=== PATIENT | female | born 1985 | race Caucasian/White ===

== ENCOUNTER 2018-05-30 02:25 | Inpatient (IN) ==
[2018-05-30] MEDS ORDERED: ceFAZolin 2 GM IV; once IV.SIG SCH (02:45)
[2018-05-30] MEDS ORDERED: Citric Acid/Sodium Citrate Liq 15 ML UDC PO SCH (02:45)
[2018-05-30] MEDS ORDERED: fentaNYL Citrate Inj 250 MCG/5 ML Ampul ONE (02:54)
[2018-05-30 02:57] LABS: Bilirubin,Urine Negative (Negative); Clarity,Urine Hazy (Clear); Color,Urine Yellow (Yellw/Straw); Glucose,Urine (UA) Negative (Negative); Leukocyte Esterase,Urine Negative (Negative); Mucus,Urine Few /lpf (Occasional); Nitrite,Urine Negative (Negative); Specific Gravity,Urine 1.013 (1.002-1.035); Squamous Epithelial Cell,Urine 3 /hpf (0-5)
[2018-05-30 03:30] LABS: Baso % (Auto) 0.1 % (0.0-2.0); Eos # (Auto) 0.1 th/mm3 (0.0-0.4); Eos % (Auto) 0.8 % (0.0-4.0); Hemoglobin 9.7 gm/dL (11.6-15.3); Lymph % (Auto) 26.1 % (9.0-44.0); Mean Corpuscular HGB Conc 33.5 % (32.0-36.0); Mean Corpuscular Hemoglobin 27.6 pg (27.0-34.0); Mean Corpuscular Volume 82.1 fL (80.0-100.0); Mean Platelet Volume 7.4 fL (7.0-11.0); Mono # (Auto) 1.1 th/mm3 (0.0-0.9); Mono % (Auto) 9.2 % (0.0-8.0); Neut # (Auto) 7.4 th/mm3 (1.8-7.7); Neut % (Auto) 63.8 % (16.0-70.0); Platelet Count 230 th/mm3 (150-450); Red Blood Count 3.53 mil/mm3 (4.00-5.30); Red Cell Distribution Width 15.5 % (11.6-17.2); White Blood Count 11.5 th/mm3 (4.0-11.0)
[2018-05-30 03:36] LABS: Amphetamine Urine With Conf Neg (Neg); Benzodiazepine Urine With Conf Neg (Neg)
[2018-05-30] MEDS ORDERED: Acetaminophen 325 MG Tablet PO PRN (03:54)
[2018-05-30] MEDS ORDERED: Simethicone 80 MG Chew Tablet PO PRN (03:54)
[2018-05-30] MEDS ORDERED: Oxytocin 30 Units/500ml Premix 30 UNITS/500 ML BAG IV.SIG ONE ×2 (03:54→05:51)
[2018-05-30] MEDS ORDERED: Zolpidem Tartrate 5 MG Tablet PO PRN ×2 (03:54→05:51)
[2018-05-30] MEDS ORDERED: Naloxone Inj 0.4 MG/ML Vial IV.PUSH PRN (03:54)
[2018-05-30] MEDS ORDERED: Morphine Inj 30 MG/30 ML PCA.VIAL PCA ONE (04:04)
--- NOTE | 2018-05-30 04:09 | P.HPOB ---
History of Present Illness Service: Precipitous labor at 31 weeks, previous 3, breech presentation Primary Care Physician: Cory Cortez MD History of Present Illness: Patient is 32-year-old white female 31 weeks previous 3 for [address] patient [address] Hernandez's who presents with precipitous labor essentially fully dilated when she arrived in ED, bulging bag was PALPABLE ultrasound confirms incomplete breech presentation Weeks Gestation:: 31 Para: 3 : 4 - Inpatient Certification If this patient has been admitted as an Inpatient: I certify that the inpatient services were ordered in accordance with Medicare regulations governing the order. This includes certification that hospital inpatient services are reasonable and necessary and in the case of services not specified as inpatient-only under 42 CFR 419.22(n), that they are appropriately provided as inpatient services in accordance to with the 2-midnight benchmark under 43 CFR 412.3(e) Estimated Total Length of Stay (Days): 4 Plans for Post Hospital Care: Home Review of Systems Constitutional: Denies anorexia, Denies body ache(s), Denies chills, Denies daytime sleepiness, Denies excessive sweating, Denies fatigue, Denies fever(s), Denies headache(s), Denies increased appetite, Denies lack of energy, Denies malaise, Denies night sweats, Denies weakness, Denies weight gain, Denies weight loss, Denies other Ears, Nose, Mouth, and Throat: Denies abnormal hearing, Denies bleeding gums, Denies bad breath, Denies change in voice, Denies dental pain, Denies difficulty swallowing, Denies dizziness, Denies dry mouth, Denies ear discharge , Denies ear pain, Denies facial pain, Denies headache(s), Denies hearing loss, Denies hoarseness, Denies lip swelling, Denies nosebleed, Denies mouth lesions, Denies mouth pain, Denies nasal congestion, Denies nasal discharge, Denies nasal obstruction, Denies nasal trauma, Denies neck lump, Denies neck pain, Denies nose pain, Denies pain with swallowing, Denies poor balance, Denies post nasal drip, Denies ringing in the ears, Denies sinus pain, Denies sinus pressure , Denies sore throat, Denies throat swelling, Denies tongue swelling, Denies other Cardiovascular: Denies chest pain, Denies chest pain at rest, Denies chest pain with activity, Denies excessive sweating, Denies fainting, Denies fast heart rate, Denies foot swelling, Denies generalized swelling, Denies irregular heart rhythm, Denies leg pain with activity, Denies leg sores, Denies leg swelling, Denies lightheadedness, Denies radiating jaw, neck or arm pain, Denies rapid, pounding, or irregular heartbeat, Denies shortness of breath, Denies shortness of breath with activity, Denies shortness of breath when lying down, Denies shortness of breath causing sudden awakening, Denies slow heart rate, Denies other Respiratory: Denies change in phlegm color, Denies chest congestion, Denies cough, Denies coughing up blood, Denies excessive phlegm production, Denies pain on inspiration, Denies pain with cough, Denies shortness of breath, Denies shortness of breath with activity, Denies snoring, Denies stridor, Denies wheezing, Denies other Gastrointestinal: Reports abdominal pain Genitourinary: Denies abnormal periods, Denies abnormal vaginal bleeding, Denies absent period, Denies bleeding between periods, Denies blood in urine, Denies difficulty starting urination, Denies difficulty urinating, Denies dribbling after urination, Denies frequent nighttime urination, Denies genital itching, Denies genital lesions, Denies heavy periods, Denies hot flashes, Denies light periods, Denies nipple discharge, Denies painful intercourse, Denies painful periods, Denies painful urination, Denies pelvic pain, Denies prolapse symptoms, Denies sexual problems, Denies side pain, Denies urinary incontinence, Denies urinary urgency, Denies vaginal discharge, Denies vaginal dryness, Denies vaginal odor, Denies vaginal itching, Denies other Musculoskeletal: Denies abnormal walking, Denies back pain, Denies body aches, Denies decreased muscle mass, Denies deformity, Denies joint pain, Denies joint swelling, Denies limited joint movement, Denies loss of height, Denies muscle cramps, Denies muscle weakness, Denies neck pain, Denies numbness, Denies radiating pain into limb, Denies stiffness, Denies tingling, Denies other PMFSH - History History Provided By: Patient - Medical History Medical History: Medical History (Last Updated 05/30/18 @ 04:04 by Cory Cortez MD) delivery delivered - Travel History History of Recent Travel: No Recent Travel in the [place] Within the Last 8 Weeks: No Recent Travel Out of the Country Within the Last 8 Weeks: No Medications and Allergies Active Medications: Active Medications Acetaminophen (Tylenol) 650 mg PO Q6H PRN PRN Reason: PAIN SCALE 1 TO 2 Citric Acid/Sodium Citrate (Sod Citrate/Citric Acid Liq) 30 ml PO DECK HAND [facility] Stop: 06/01/18 02:44 Diphtheria/Pertussis/Tetanus Vacc (Boostrix Vaccine Inj) 0.5 ml IM .ONCE ONE Stop: 05/31/18 16:01 Cefazolin Sodium/Dextrose (Ancef 2 Gm Premix Inj) 2 gm in 50 mls @ 100 mls/hr IV.SIG DECK HAND [facility] Stop: 06/01/18 02:44 Lactated Ringer's (Lr 1000 Ml Inj) 1,000 mls @ 150 mls/hr IV.CONT .Q6H40M [facility] Cefazolin Sodium 2,000 mg/ (Sodium Chloride) 100 mls @ 200 mls/hr IV.SIG Q8H [facility] Stop: 05/30/18 12:29 Lactated Ringer's (Lr 1000 Ml Inj) 1,000 mls @ 100 mls/hr IV.CONT .Q10H [facility] Stop: 05/31/18 04:53 Morphine Sulfate (Morphine Inj) 30 mg in 30 mls @ 0 mls/hr YOUNG ADULT LIBRARIAN UNSCH PRN PRN Reason: per YOUNG ADULT LIBRARIAN parameters Oxytocin (Pitocin 30 Units/Ns 500 Ml Premix) 30 units in 500 mls @ 100 mls/hr IV.SIG ONCE ONE Stop: 05/30/18 08:53 Oxytocin (Pitocin 30 Units/Ns 500 Ml Premix) 30 units in 500 mls @ 100 mls/hr IV.SIG PRN PRN PRN Reason: Heavy bleeding Stop: 05/31/18 08:53 Ketorolac Tromethamine (Toradol Inj) 30 mg IM Q6H PRN PRN Reason: SEE LABEL COMMENTS Measles/Mumps/Rubella Vaccine Live (M-M-R Ii Vaccine Inj) 0.5 ml SQ .ONCE ONE Stop: 05/31/18 16:01 Naloxone HCl (Narcan Inj) 0.4 mg IV.PUSH PRN PRN PRN Reason: Resp rate < 10 Ondansetron HCl (Zofran Inj) 4 mg IV.PUSH Q6H PRN PRN Reason: NAUSEA OR VOMITING Oxycodone/Acetaminophen (Percocet 5/325 Mg) 1 tab PO Q4H PRN PRN Reason: PAIN SCALE 3 TO 5 Oxycodone/Acetaminophen (Percocet 5/325 Mg) 2 tab PO Q4H PRN PRN Reason: PAIN SCALE 6 TO 10 Senna/Docusate Sodium (Asia-Colace) 2 tab PO Q12H PRN PRN Reason: CONSTIPATION Simethicone (Mylicon Chew) 80 mg PO QID PRN PRN Reason: FLATULENCE Sodium Chloride (Ns Flush) 2 ml IV.FLUSH BID ARACELY Sodium Chloride (Ns Flush) 2 ml IV.FLUSH PRN PRN PRN Reason: FLUSH AFTER USING IV ACCESS Zolpidem Tartrate (Ambien) 5 mg PO HS PRN PRN Reason: INSOMNIA Allergies Allergy/AdvReac Type Severity Reaction Status Date / Time No Known Allergies Allergy Unverified 05/30/18 02:25 Home Medications Medication Instructions Recorded Confirmed Type No Known Home Medications 05/30/18 05/30/18 History Exam - Constitutional severe distress - Routine HEENT Exam Head: Present: normocephalic Eye: Present: PERRL - Routine Neck Exam Present: supple - Routine Cardiovascular Exam Present: RRR - Routine Abdominal Exam Present: tenderness, surgical scars - Routine Exam Comments: Pelvic exam reveals cervix that is 9-10 cm with bulging amniotic membranes no presenting part palpable but ultrasound confirmed incomplete breech Results - Labs CBC & Chem 7: 05/30/18 03:10 Labs: Laboratory Results - last 24 hr 05/30/18 05/30/18 05/30/18 02:20 02:20 03:10 WBC 11.5 H RBC 3.53 L Hgb 9.7 L Hct 29.0 L MCV 82.1 MCH 27.6 MCHC 33.5 RDW 15.5 Plt Count 230 MPV 7.4 Neut % (Auto) 63.8 Lymph % (Auto) 26.1 [place] % (Auto) 9.2 H Eos % (Auto) 0.8 Baso % (Auto) 0.1 Neut # (Auto) 7.4 Lymph # (Auto) 3.0 [place] # (Auto) 1.1 H Eos # (Auto) 0.1 Baso # (Auto) 0.0 WBC Differential . Differential Comment Auto diff final Urine Color Yellow Urine Clarity Hazy H Urine pH 7.0 Ur Specific [place] 1.013 Urine Protein Negative Urine Glucose (UA) Negative Urine Ketones Negative Urine Occult Blood Large H Urine Nitrate Negative Urine Bilirubin Negative Urine Urobilinogen Less than 2 Ur Leukocyte Esterase Negative Urine RBC 123 H Urine WBC 3 Ur Squamous Epith Cells 3 Urine Mucus Few H Micro UA Comment Culture not ind Urine Culture Comments Culture not ind Urine Opiates Screen Pos H Ur Barbiturates Screen Neg Ur Amphetamine Screen Neg U Benzodiazepines Scrn Neg Urine Cocaine Screen Pos H U Cannabinoids Screen Neg Blood Type Blood Type Recheck 05/30/18 03:10 WBC RBC Hgb Hct MCV MCH MCHC RDW Plt Count MPV Neut % (Auto) Lymph % (Auto) [place] % (Auto) Eos % (Auto) Baso % (Auto) Neut # (Auto) Lymph # (Auto) [place] # (Auto) Eos # (Auto) Baso # (Auto) WBC Differential Differential Comment Urine Color Urine Clarity Urine pH Ur Specific [place] Urine Protein Urine Glucose (UA) Urine Ketones Urine Occult Blood Urine Nitrate Urine Bilirubin Urine Urobilinogen Ur Leukocyte Esterase Urine RBC Urine WBC Ur Squamous Epith Cells Urine Mucus Micro UA Comment Urine Culture Comments Urine Opiates Screen Ur Barbiturates Screen Ur Amphetamine Screen U Benzodiazepines Scrn Urine Cocaine Screen U Cannabinoids Screen Blood Type O Positive Blood Type Recheck Required Caprini VTE Risk Assessment Caprini VTE Risk Assessment: No/Low Risk (score <= 1) Caprini Risk Assessment Model: Point Value = 1 Point Value = 2 Point Value = 3 Point Value = 5 Age 41-60 Minor surgery BMI > 25 kg/m2 Swollen legs Varicose veins or History of unexplained or recurrent spontaneous Oral contraceptives or hormone replacement Sepsis (< 1 month) Serious lung disease, including pneumonia (< 1 month) Abnormal pulmonary function Acute myocardial infarction Congestive heart failure (< 1 month) History of inflammatory bowel disease Medical patient at bed rest Age 61-74 Arthroscopic surgery Major open surgery (> 45 min) Laparoscopic surgery (> 45 min) Malignancy Confined to bed (> 72 hours) Immobilizing plaster cast Central venous access Age >= 75 History of VTE Family history of VTE Factor V Leiden Prothrombin [id number] Lupus anticoagulant Anticardiolipin antibodies Elevated serum homocysteine Heparin-induced thrombocytopenia Other congenital or acquired thrombophilia Stroke (< 1 month) Elective arthroplasty Hip, pelvis, or leg fracture Acute spinal cord injury (< 1 month) Prophylaxis Regimen: Total Risk Factor Score Risk Level Prophylaxis Regimen 0-1 Low Early ambulation 2 Moderate Order ONE of the following: *Sequential Compression Device (SCD) *Heparin 5000 units SQ BID 3-4 Higher Order ONE of the following medications: *Heparin 5000 units SQ TID *Enoxaparin/Lovenox 40 mg SQ daily (WT < 150 kg, CrCl > 30 mL/min) *Enoxaparin/Lovenox 30 mg SQ daily (WT < 150 kg, CrCl > 10-29 mL/min) *Enoxaparin/Lovenox 30 mg SQ BID (WT < 150 kg, CrCl > 30 mL/min) AND/OR *Sequential Compression Device (SCD) 5 or more Highest Order ONE of the following medications: *Heparin 5000 units SQ TID (Preferred with Epidurals) *Enoxaparin/Lovenox 40 mg SQ daily (WT < 150 kg, CrCl > 30 mL/min) *Enoxaparin/Lovenox 30 mg SQ daily (WT < 150 kg, CrCl > 10-29 mL/min) *Enoxaparin/Lovenox 30 mg SQ BID (WT < 150 kg, CrCl > 30 mL/min) AND *Sequential Compression Device (SCD) Assessment and Plan - Diagnosis (1) Precipitate labor, delivered, current hospitalization Code(s): O62.3 - Precipitate labor Status: Acute (2) Breech delivery Code(s): O32.1XX0 - Maternal care for breech presentation, not applicable or unspecified Status: Acute - Plan Plan is emergent repeat section
[2018-05-30] MEDS ORDERED: Oxytocin 30 Units/500ml Premix 30 UNITS/500 ML BAG ONE (04:11)
[2018-05-30] MEDS: Morphine Inj 30 MG/30 ML PCA.VIAL PCA PRN ×3 (04:17→15:16)
[2018-05-30] MEDS ORDERED: ceFAZolin Inj 2,000 MG in Sodium Chlor 0.9% Inj 80 ML IV.SIG SCH (05:00)
--- NOTE | 2018-05-30 05:41 | MP ---
cc: Cory Cortez MD DATE OF OPERATION: 05/30/2018 PREOPERATIVE DIAGNOSIS: Precipitous labor, previous section x 3, breech presentation with this fetus. POSTOPERATIVE DIAGNOSIS: Precipitous labor, previous section x 3, breech presentation with this fetus, placental abruption and positive drug screen. PROCEDURE PERFORMED: Repeat section, classical. SURGEON: Cory Cortez MD ANESTHESIA: General. PREOPERATIVE NOTE: The patient is a 32-year-old white female, G4, P3, previous x 3, now at 31 weeks, who sees Dr. Hernandez for care, who presents to OB ED and precipitous labor, 9-10 cm dilated with a bulging amniotic sac and baby in an incomplete breech presentation, confirmed by ultrasound. The patient needed emergent section for delivery and was taken to the operating room for the same. DESCRIPTION OF PROCEDURE: The patient was taken to the operating room, and after IV access was obtained, which took quite a while, she was prepped and draped and rapid sequence induction of general anesthetic performed. After intubation, a vertical skin incision was made from symphysis to the umbilicus and carried to fascia sharply. The fascia was incised in a superior and inferiorly, the peritoneal cavity entered sharply and bandage scissors used to expand that incision. The bladder blade placed on the lower edge of the incision, the visceral peritoneum reflected off the lower uterine segment and a vertical incision was made in the lower uterine segment to near the fundus. At that time, a moderate amount of dark blood extruded through the incision and blood clot, consistent with an abruption and this was prior to rupture of the membranes, the membranes were ruptured and clear fluid noted. The baby was in an incomplete breech presentation and was extracted in the usual fashion for a breech. The incision had to be extended near the fundus to allow atraumatic delivery of the baby's head. Baby was delivered at 2:54 a.m. 8 and 8, weight 1620 grams. This was a male fetus. Delayed cord clamping done and the baby handed to awaiting staff. Cord pH obtained and pending at this time. Cord blood obtained. Placenta manually extracted and was examined and noted to have a marginal abruption, approximately 10-15% and then the placenta was sent to pathology. The uterus was exteriorized, cleaned of all remnants of blood clot and then the vertical incision was closed in a running, nonlocking 0 chromic suture, followed by an imbricating suture of the same. Hemostasis was achieved. The tubes and ovaries were within normal limits. Blood suctioned from the cul-de-sac and gutters and then the uterus replaced in the peritoneal cavity. The parietal peritoneum closed with a running layer of 2-0 Vicryl. Fascia was then closed with a running layer of 0 Vicryl. Subcutaneous tissue reapproximated with 2 layers of subcutaneous closure to reapproximate those edges so there would be no pressure on the skin incision itself and the then skin closed with a 3-0 Monocryl running subcuticular stitch. Steri-Strips and pressure dressing applied. The estimated blood loss was 750 mL. Sponge and needle count were correct x 2. The patient went to recovery in stable condition. MD JENI Barnes/MALACHI , 04:19 AM , 05:39 AM
[2018-05-30 05:45] LABS: Cord Arterial Blood HCO3 23.3
[2018-05-30] MEDS ORDERED: [UNRECOGNIZED DRUG - REMARK] OTHER SCH (08:45)
[2018-05-30] MEDS ORDERED: Oxytocin 30 Units/500ml Premix 30 UNITS/500 ML BAG IV.SIG PRN ×2 (08:54→10:51)
[2018-05-30] MEDS ORDERED: Sodium Chlor 0.9% Inj 500 ML IV.SIG SCH (09:00)
[2018-05-30] MEDS ORDERED: Succinylcholine Inj 200 MG/10 ML Vial IV.PUSH ONE (11:10)
[2018-05-30] MEDS ORDERED: Ketorolac Inj 30 MG/ML (IVP) Vial IV.PUSH ONE (11:10)
--- NOTE | 2018-05-30 12:28 | P.PNOB ---
Subjective Post op day: 0 Interval history: pain well controlled on cell tower climber. eating, passing flatus, min bleeding per nurse. Blanc in still. Pt denies using cocaine. Objective Vital Signs/I&O: Vital Signs 05/30/18 04:15 05/30/18 04:30 05/30/18 04:45 Temperature Pulse Rate 51 L 51 L 50 L Respiratory Rate 18 18 16 Blood Pressure 121/76 109/64 104/57 L 05/30/18 05:00 05/30/18 05:15 05/30/18 07:57 Temperature 97.9 F 97.7 F Pulse Rate 46 L 54 L Respiratory Rate 16 18 Blood Pressure 119/75 115/79 05/30/18 11:26 Temperature 98.4 F Pulse Rate 67 Respiratory Rate 20 Blood Pressure 110/60 Intake & Output 05/29/18 05/30/18 05/30/18 18:59 06:59 18:59 Weight 72.575 kg Result Diagrams: 05/30/18 03:10 Objective Remarks: GENERAL: Well-nourished, well-developed patient. CARDIOVASCULAR: Regular rate and rhythm without murmurs, gallops, or rubs. RESPIRATORY: Breath sounds equal bilaterally. No accessory muscle use. ABDOMEN/GI: Abdomen soft, non-tender, bowel sounds present. Incision: dressing Clean, dry and intact. Fundus: Firm, non-tender at umbilicus. GENITOURINARY: Light to moderate bleeding. EXTREMITIES: No cyanosis or edema, non-tender, without signs of DVT. Medications and IVs: Active Medications Acetaminophen (Tylenol) 650 mg PO Q6H PRN PRN Reason: PAIN SCALE 1 TO 2 Buprenorphine HCl (Sublingual) 8 mg SL BID [facility] Citric Acid/Sodium Citrate (Sod Citrate/Citric Acid Liq) 30 ml PO PICKING BELT OPERATOR [facility] Stop: 06/01/18 02:44 Diphtheria/Pertussis/Tetanus Vacc (Boostrix Vaccine Inj) 0.5 ml IM .ONCE ONE Stop: 05/31/18 16:01 Gabapentin (Neurontin) 300 mg PO Q8HR [facility] Cefazolin Sodium/Dextrose (Ancef 2 Gm Premix Inj) 2 gm in 50 mls @ 100 mls/hr IV.SIG PICKING BELT OPERATOR [facility] Stop: 06/01/18 02:44 Lactated Ringer's (Lr 1000 Ml Inj) 1,000 mls @ 150 mls/hr IV.CONT .Q6H40M [facility] Cefazolin Sodium 2,000 mg/ (Sodium Chloride) 100 mls @ 200 mls/hr IV.SIG Q8H [facility] Stop: 05/30/18 13:29 Lactated Ringer's (Lr 1000 Ml Inj) 1,000 mls @ 100 mls/hr IV.CONT .Q10H [facility] Stop: 05/31/18 04:53 Morphine Sulfate (Morphine Inj) 30 mg in 30 mls @ 0 mls/hr NON DESTRUCTIVE EVALUATION TECHNICIAN UNSCH PRN PRN Reason: per NON DESTRUCTIVE EVALUATION TECHNICIAN parameters Last Admin: 05/30/18 09:39 Dose: 0 mls/hr Oxytocin (Pitocin 30 Units/Ns 500 Ml Premix) 30 units in 500 mls @ 100 mls/hr IV.SIG PRN PRN PRN Reason: Heavy bleeding Stop: 05/31/18 08:53 Lactated Ringer's (Lr 1000 Ml Inj) 1,000 mls @ 100 mls/hr IV.CONT .Q10H [facility] Stop: 05/31/18 06:50 Oxytocin (Pitocin 30 Units/Ns 500 Ml Premix) 30 units in 500 mls @ 100 mls/hr IV.SIG PRN PRN PRN Reason: Heavy bleeding Stop: 05/31/18 10:50 Ketorolac Tromethamine (Toradol Inj) 30 mg IM Q6H PRN PRN Reason: SEE LABEL COMMENTS Stop: 06/04/18 03:53 Measles/Mumps/Rubella Vaccine Live (M-M-R Ii Vaccine Inj) 0.5 ml SQ .ONCE ONE Stop: 05/31/18 16:01 Miscellaneous Information ([facility]) 0 each OTHER Q15M [facility] Naloxone HCl (Narcan Inj) 0.4 mg IV.PUSH PRN PRN PRN Reason: Resp rate < 10 Ondansetron HCl (Zofran Inj) 4 mg IV.PUSH Q6H PRN PRN Reason: NAUSEA OR VOMITING Oxycodone/Acetaminophen (Percocet 5/325 Mg) 1 tab PO Q4H PRN PRN Reason: PAIN SCALE 3 TO 5 Oxycodone/Acetaminophen (Percocet 5/325 Mg) 2 tab PO Q4H PRN PRN Reason: PAIN SCALE 6 TO 10 Senna/Docusate Sodium (Asia-Colace) 2 tab PO Q12H PRN PRN Reason: CONSTIPATION Simethicone (Mylicon Chew) 80 mg PO QID PRN PRN Reason: FLATULENCE Sodium Chloride (Ns Flush) 2 ml IV.FLUSH BID ARACELY Sodium Chloride (Ns Flush) 2 ml IV.FLUSH PRN PRN PRN Reason: FLUSH AFTER USING IV ACCESS Sodium Chloride (Ns Flush) 2 ml IV.FLUSH BID ARACELY Sodium Chloride (Ns Flush) 2 ml IV.FLUSH PRN PRN PRN Reason: FLUSH AFTER USING IV ACCESS Zolpidem Tartrate (Ambien) 5 mg PO HS PRN PRN Reason: INSOMNIA Assessment and Plan - Plan 32 yo now s/p classical CD for placental abruption ptl incomplete breech presentation at 31 weeks Polysubstance abuse- + opiates and cocaine Discussed w Dr. Hernandez, pt started subutex last week, she has violated her contract and will be dismissed from our practice after initial 1 wk pp visit. During hospitalization, will continue her subutex 8mg bid and gabapentin. She presently has morphin cell tower climber. Will d/c this when mitali dose of subutex due at 2100. Counseled she had classical CD and this precludes her from having vaginal deliveries. Also, her multiple cd would also be a contraindication. She does desire BTL.
[2018-05-30] MEDS ORDERED: Gabapentin 300 MG Capsule PO SCH (14:00)
[2018-05-30] MEDS: Senna/Docusate Sodium 8.6/50 MG Tablet PO PRN (21:44)
[2018-05-31] MEDS: Gabapentin 300 MG Capsule PO SCH ×3 (00:24→16:15)
[2018-05-31 05:50] LABS: Baso % (Auto) 0.3 % (0.0-2.0); Eos # (Auto) 0.1 th/mm3 (0.0-0.4); Eos % (Auto) 0.8 % (0.0-4.0); Hematocrit 25.2 % (35.0-46.0); Hemoglobin 8.5 gm/dL (11.6-15.3); Lymph # (Auto) 1.7 th/mm3 (1.0-4.8); Lymph % (Auto) 24.1 % (9.0-44.0); Mean Corpuscular HGB Conc 33.7 % (32.0-36.0); Mean Corpuscular Hemoglobin 28.3 pg (27.0-34.0); Mean Corpuscular Volume 84.2 fL (80.0-100.0); Mean Platelet Volume 7.8 fL (7.0-11.0); Mono # (Auto) 0.6 th/mm3 (0.0-0.9); Mono % (Auto) 9.4 % (0.0-8.0); Neut # (Auto) 4.5 th/mm3 (1.8-7.7); Neut % (Auto) 65.4 % (16.0-70.0); Platelet Count 184 th/mm3 (150-450); Red Blood Count 2.99 mil/mm3 (4.00-5.30); Red Cell Distribution Width 16.2 % (11.6-17.2); White Blood Count 6.9 th/mm3 (4.0-11.0)
[2018-05-31 06:39] LABS: Hepatitits B Surface Antigen Reactive (Nonreactive)
--- NOTE | 2018-05-31 08:12 | P.PNOB ---
Subjective Post op day: 1 Interval history: Postoperative day #1 AFVSS overnight. Incision not draining. Decreased lochia. Denies dysuria. No breast tenderness. Appetite good. No nausea or vomiting. Positive flatus/bowel movement. Ambulating well. Denies calf pain or shortness of breath. Otherwise, she is doing well this morning and has no other complaints. Objective Vital Signs/I&O: Vital Signs 05/30/18 11:26 05/30/18 16:00 05/30/18 20:00 Temperature 98.4 F 98.4 F 98.3 F Pulse Rate 67 69 66 Respiratory Rate 20 18 18 Blood Pressure 110/60 108/51 L 91/61 L 05/31/18 00:28 05/31/18 04:00 Temperature 98.2 F 98.4 F Pulse Rate 71 86 Respiratory Rate 18 18 Blood Pressure 93/66 L 94/65 L Intake & Output 05/30/18 05/31/18 05/31/18 18:59 06:59 18:59 Weight 72.575 kg Result Diagrams: 06/01/18 14:15 Objective Remarks: GENERAL: Well-nourished, well-developed patient. CARDIOVASCULAR: Regular rate and rhythm without murmurs, gallops, or rubs. RESPIRATORY: Breath sounds equal bilaterally. No accessory muscle use. ABDOMEN/GI: Abdomen soft, non-tender, bowel sounds present. Incision: Clean, dry and intact. Fundus: Firm, non-tender at umbilicus. GENITOURINARY: Light to moderate bleeding. EXTREMITIES: No cyanosis or edema, non-tender, without signs of DVT. Medications and IVs: Active Medications Acetaminophen (Tylenol) 650 mg PO Q6H PRN PRN Reason: PAIN SCALE 1 TO 2 Buprenorphine HCl (Sublingual) 8 mg SL BID@1100,2300 [facility] Last Admin: 05/31/18 00:24 Dose: 8 mg Citric Acid/Sodium Citrate (Sod Citrate/Citric Acid Liq) 30 ml PO WINDING INSPECTOR AND TESTER [facility] Stop: 06/01/18 02:44 Diphtheria/Pertussis/Tetanus Vacc (Boostrix Vaccine Inj) 0.5 ml IM .ONCE ONE Stop: 05/31/18 16:01 Gabapentin (Neurontin) 300 mg PO Q8H [facility] Last Admin: 05/31/18 07:57 Dose: 300 mg Cefazolin Sodium/Dextrose (Ancef 2 Gm Premix Inj) 2 gm in 50 mls @ 100 mls/hr IV.SIG WINDING INSPECTOR AND TESTER [facility] Stop: 06/01/18 02:44 Last Admin: 05/30/18 13:12 Dose: 100 mls/hr Lactated Ringer's (Lr 1000 Ml Inj) 1,000 mls @ 150 mls/hr IV.CONT .Q6H40M [facility] Oxytocin (Pitocin 30 Units/Ns 500 Ml Premix) 30 units in 500 mls @ 100 mls/hr IV.SIG PRN PRN PRN Reason: Heavy bleeding Stop: 05/31/18 08:53 Oxytocin (Pitocin 30 Units/Ns 500 Ml Premix) 30 units in 500 mls @ 100 mls/hr IV.SIG PRN PRN PRN Reason: Heavy bleeding Stop: 05/31/18 10:50 Ketorolac Tromethamine (Toradol Inj) 30 mg IM Q6H PRN PRN Reason: SEE LABEL COMMENTS Stop: 06/04/18 03:53 Measles/Mumps/Rubella Vaccine Live (M-M-R Ii Vaccine Inj) 0.5 ml SQ .ONCE ONE Stop: 05/31/18 16:01 Miscellaneous Information ([facility]) 0 each OTHER Q15M [facility] Naloxone HCl (Narcan Inj) 0.4 mg IV.PUSH PRN PRN PRN Reason: Resp rate < 10 Ondansetron HCl (Zofran Inj) 4 mg IV.PUSH Q6H PRN PRN Reason: NAUSEA OR VOMITING Oxycodone/Acetaminophen (Percocet 5/325 Mg) 1 tab PO Q4H PRN PRN Reason: PAIN SCALE 3 TO 5 Oxycodone/Acetaminophen (Percocet 5/325 Mg) 2 tab PO Q4H PRN PRN Reason: PAIN SCALE 6 TO 10 Last Admin: 05/31/18 07:57 Dose: 2 tab Senna/Docusate Sodium (Asia-Colace) 2 tab PO Q12H PRN PRN Reason: CONSTIPATION Last Admin: 05/30/18 21:44 Dose: 2 tab Simethicone (Mylicon Chew) 80 mg PO QID PRN PRN Reason: FLATULENCE Sodium Chloride (Ns Flush) 2 ml IV.FLUSH BID [facility] Sodium Chloride (Ns Flush) 2 ml IV.FLUSH PRN PRN PRN Reason: FLUSH AFTER USING IV ACCESS Sodium Chloride (Ns Flush) 2 ml IV.FLUSH BID ARACELY Sodium Chloride (Ns Flush) 2 ml IV.FLUSH PRN PRN PRN Reason: FLUSH AFTER USING IV ACCESS Zolpidem Tartrate (Ambien) 5 mg PO HS PRN PRN Reason: INSOMNIA Assessment and Plan - Plan 32y/o female who is POD#1 s/p CXN. -Continue routine care. -Percocet and Motrin PRN pain. -Encouraged OOB. Advised pelvic rest for 6 wks. Will need a f/u appt. in 1 wk for incision check. -D/c in 1-[address] Wall - Attending Attestation The patient was seen and examined by me and I participated in all greene decision making. Continue routine postoperative and care. Incision healing well with no evidence of exudate or erythema. SMS
[2018-05-31 08:28] LABS: Hepatitis A IgM Antibody Nonreactive (Nonreactive)
[2018-05-31] MEDS: Ibuprofen 600 MG Tablet PO SCH ×2 (10:05→16:14)
--- NOTE | 2018-05-31 13:14 | P.PNOB ---
Subjective Post op day: 1 Interval history: POD#1; S/p classical Cd, doing well, pain controlled Objective Vital Signs/I&O: Vital Signs 05/30/18 16:00 05/30/18 20:00 05/31/18 00:28 Temperature 98.4 F 98.3 F 98.2 F Pulse Rate 69 66 71 Respiratory Rate 18 18 18 Blood Pressure 108/51 L 91/61 L 93/66 L 05/31/18 04:00 05/31/18 08:00 Temperature 98.4 F 98.1 F Pulse Rate 86 64 Respiratory Rate 18 18 Blood Pressure 94/65 L 99/65 L Intake & Output 05/30/18 05/31/18 05/31/18 18:59 06:59 18:59 Weight 72.575 kg Result Diagrams: 05/31/18 05:23 Objective Remarks: GENERAL: Well-nourished, well-developed patient. CARDIOVASCULAR: Regular rate and rhythm without murmurs, gallops, or rubs. RESPIRATORY: Breath sounds equal bilaterally. No accessory muscle use. ABDOMEN/GI: Abdomen soft, non-tender, bowel sounds present. Incision: Clean, dry and intact. Fundus: Firm, non-tender at umbilicus. GENITOURINARY: Light to moderate bleeding. EXTREMITIES: No cyanosis or edema, non-tender, without signs of DVT. 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 [facility] Stop: 06/01/18 02:44 Diphtheria/Pertussis/Tetanus Vacc (Boostrix Vaccine Inj) 0.5 ml IM .ONCE ONE Stop: 05/31/18 16:01 Gabapentin (Neurontin) 300 mg PO Q8H [facility] Last Admin: 05/31/18 07:57 Dose: 300 mg Cefazolin Sodium/Dextrose (Ancef 2 Gm Premix Inj) 2 gm in 50 mls @ 100 mls/hr IV.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 [facility] Stop: 06/01/18 02:44 Last Admin: 05/30/18 13:12 Dose: 100 mls/hr Lactated Ringer's (Lr 1000 Ml Inj) 1,000 mls @ 150 mls/hr IV.CONT .Q6H40M [facility] Ketorolac Tromethamine (Toradol Inj) 30 mg IM Q6H PRN PRN Reason: SEE LABEL COMMENTS Stop: 06/04/18 03:53 Measles/Mumps/Rubella Vaccine Live (M-M-R Ii Vaccine Inj) 0.5 ml SQ .ONCE ONE Stop: 05/31/18 16:01 Miscellaneous Information ([facility]) 0 each OTHER Q15M [facility] Naloxone HCl (Narcan Inj) 0.4 mg IV.PUSH PRN PRN PRN Reason: Resp rate < 10 Ondansetron HCl (Zofran Inj) 4 mg IV.PUSH Q6H PRN PRN Reason: NAUSEA OR VOMITING Oxycodone/Acetaminophen (Percocet 5/325 Mg) 1 tab PO Q4H PRN PRN Reason: PAIN SCALE 3 TO 5 Oxycodone/Acetaminophen (Percocet 5/325 Mg) 2 tab PO Q4H PRN PRN Reason: PAIN SCALE 6 TO 10 Last Admin: 05/31/18 07:57 Dose: 2 tab Senna/Docusate Sodium (Asia-Colace) 2 tab PO Q12H PRN PRN Reason: CONSTIPATION Last Admin: 05/30/18 21:44 Dose: 2 tab Simethicone (Mylicon Chew) 80 mg PO QID PRN PRN Reason: FLATULENCE Sodium Chloride (Ns Flush) 2 ml IV.FLUSH BID [facility] Sodium Chloride (Ns Flush) 2 ml IV.FLUSH PRN PRN PRN Reason: FLUSH AFTER USING IV ACCESS Sodium Chloride (Ns Flush) 2 ml IV.FLUSH BID [facility] Sodium Chloride (Ns Flush) 2 ml IV.FLUSH PRN PRN PRN Reason: FLUSH AFTER USING IV ACCESS Zolpidem Tartrate (Ambien) 5 mg PO HS PRN PRN Reason: INSOMNIA Assessment and Plan - Diagnosis (1) Precipitate labor, delivered, current hospitalization Code(s): O62.3 - Precipitate labor Status: Acute Plan: stable POD#1, advance care , son stable in NICU (2) Drug abuse during Code(s): O99.320 - Drug use complicating , unspecified trimester; F19.10 - Other psychoactive substance abuse, uncomplicated Status: Acute - Plan 32y/o female who is POD#1 s/p CXN. -Continue routine care. -Percocet and Motrin PRN pain. -Encouraged OOB. Advised pelvic rest for 6 wks. Will need a f/u appt. in 1 wk for incision check. -D/c in 1-2 more days. rosario Wall
[2018-05-31] MEDS ORDERED: Diphtheria/Tetanus/Pertussis Vaccine Inj 0.5 ML Syringe IM ONE (16:00)
[2018-05-31] MEDS ORDERED: Measles/Mumps/Rubella Vaccine Inj 0.5 ML Vial SQ ONE (16:00)
[2018-05-31] MEDS: Senna/Docusate Sodium 8.6/50 MG Tablet PO PRN (16:15)
[2018-06-01] MEDS: Ibuprofen 600 MG Tablet PO SCH ×4 (00:21→21:45)
[2018-06-01] MEDS: Gabapentin 300 MG Capsule PO SCH ×3 (01:03→18:24)
[2018-06-01 15:17] LABS: Hematocrit 26.5 % (35.0-46.0); Hemoglobin 9.1 gm/dL (11.6-15.3); Mean Corpuscular HGB Conc 34.2 % (32.0-36.0); Mean Corpuscular Hemoglobin 28.6 pg (27.0-34.0); Mean Corpuscular Volume 83.5 fL (80.0-100.0); Mean Platelet Volume 7.9 fL (7.0-11.0); Platelet Count 215 th/mm3 (150-450); Red Blood Count 3.17 mil/mm3 (4.00-5.30); Red Cell Distribution Width 16.3 % (11.6-17.2); White Blood Count 8.9 th/mm3 (4.0-11.0)
--- NOTE | 2018-06-02 02:08 | P.PNOB ---
Subjective Post op day: 3 Interval history: Went to her room at 8 am and Marcia sewellas up in the NICU with her RN reports she is doing very well with no complaints of pain or other concerns Objective Vital Signs/I&O: Vital Signs 06/01/18 08:00 06/01/18 20:00 06/01/18 20:30 Temperature 98.1 F 98.1 F 98.1 F Pulse Rate 68 63 63 Respiratory Rate Blood Pressure 124/75 105/69 105/69 Result Diagrams: 06/01/18 14:15 Objective Remarks: GENERAL: Well-nourished, well-developed patient. CARDIOVASCULAR: Regular rate and rhythm without murmurs, gallops, or rubs. RESPIRATORY: Breath sounds equal bilaterally. No accessory muscle use. ABDOMEN/GI: Abdomen soft, non-tender, bowel sounds present. Incision: Clean, dry and intact. Fundus: Firm, non-tender at umbilicus. GENITOURINARY: Light to moderate bleeding. EXTREMITIES: No cyanosis or edema, non-tender, without signs of DVT. Medications and IVs: Active Medications Acetaminophen (Tylenol) 650 mg PO Q6H PRN PRN Reason: PAIN SCALE 1 TO 2 Buprenorphine HCl (Sublingual) 8 mg SL BID@1100,2300 [facility] Last Admin: 06/01/18 22:42 Dose: 8 mg Gabapentin (Neurontin) 300 mg PO Q8H [facility] Last Admin: 06/01/18 18:24 Dose: 300 mg Lactated Ringer's (Lr 1000 Ml Inj) 1,000 mls @ 150 mls/hr IV.CONT .Q6H40M [facility] Ketorolac Tromethamine (Toradol Inj) 30 mg IM Q6H PRN PRN Reason: SEE LABEL COMMENTS Stop: 06/04/18 03:53 Miscellaneous Information ([facility] [place] [facility] Information) 0 each OTHER Q15M [facility] Naloxone HCl (Narcan Inj) 0.4 mg IV.PUSH PRN PRN PRN Reason: Resp rate < 10 Ondansetron HCl (Zofran Inj) 4 mg IV.PUSH Q6H PRN PRN Reason: NAUSEA OR VOMITING Oxycodone/Acetaminophen (Percocet 5/325 Mg) 1 tab PO Q4H PRN PRN Reason: PAIN SCALE 3 TO 5 Oxycodone/Acetaminophen (Percocet 5/325 Mg) 2 tab PO Q4H PRN PRN Reason: PAIN SCALE 6 TO 10 Last Admin: 06/01/18 21:44 Dose: 2 tab Senna/Docusate Sodium (Asia-Colace) 2 tab PO Q12H PRN PRN Reason: CONSTIPATION Last Admin: 05/31/18 16:15 Dose: 2 tab Simethicone (Mylicon Chew) 80 mg PO QID PRN PRN Reason: FLATULENCE Last Admin: 05/31/18 16:14 Dose: 80 mg Sodium Chloride (Ns Flush) 2 ml IV.FLUSH BID [facility] Last Admin: 06/01/18 21:45 Dose: 2 ml Sodium Chloride (Ns Flush) 2 ml IV.FLUSH PRN PRN PRN Reason: FLUSH AFTER USING IV ACCESS Last Admin: 05/31/18 16:19 Dose: 2 ml Sodium Chloride (Ns Flush) 2 ml IV.FLUSH BID [facility] Sodium Chloride (Ns Flush) 2 ml IV.FLUSH PRN PRN PRN Reason: FLUSH AFTER USING IV ACCESS Zolpidem Tartrate (Ambien) 5 mg PO HS PRN PRN Reason: INSOMNIA Assessment and Plan - Diagnosis (1) Precipitate labor, delivered, current hospitalization Code(s): O62.3 - Precipitate labor Status: Acute Plan: stable POD#1, advance care , infant son stable in NICU (2) Drug abuse during Code(s): O99.320 - Drug use complicating , unspecified trimester; F19.10 - Other psychoactive substance abuse, uncomplicated Status: Acute (3) Breech delivery Code(s): O32.1XX0 - Maternal care for breech presentation, not applicable or unspecified Status: Acute (4) History of low vertical section Code(s): Z98.891 - History of uterine scar from previous surgery Status: Acute - Plan 32y/o female who is POD#1 s/p CXN. -Continue routine care. -Percocet and Motrin PRN pain. -Encouraged OOB. Advised pelvic rest for 6 wks. Will need a f/u appt. in 1 wk for incision check. -D/c in 1-[address] Wall POD 2 Not seen but chart reviewed anticipate discharge home on POD 3 with subutex and psych mediations To return in one week or less case management to help with follow up in [place]
[2018-06-02] MEDS: Gabapentin 300 MG Capsule PO SCH ×3 (02:19→18:02)
[2018-06-02] MEDS: Ibuprofen 600 MG Tablet PO SCH ×4 (03:49→23:48)
--- NOTE | 2018-06-02 04:53 | P.PNOB ---
Subjective Post op day: 3 Interval history: Discussion 430 am with Marcia. Was at home on the 3rd in bed when suddenly began bleeding profusely and then painful cramps--consistent with abruption. Denies use of cocaine, stating it was never a drug of choice: had not yet received pre authorization for the subutex written in my office and had obtained street opioid to prevent withdrawal. Likely pressed pills that contained cocaine, since UDS in house showed cocaine and her admission status was consistent with abruption. Now has her script of buprenorphine at home ( pre authorization went through while she was hospitalized) and doing well on buprenorphine. Has received some percocet which I stopped and explained need to stick with the buprenorphine only. She has been up with infant whenever possible. Would like to nurse and I support this. He was never on ventilator. She is holding him during her visits. Distraught over lack of transportation for after discharge. They are renting room in [place]. Needs stay close here. Pain 3-5/10 using motrin no symptoms of withdrawal at this time Objective Vital Signs/I&O: Vital Signs 06/01/18 08:00 06/01/18 20:00 06/01/18 20:30 Temperature 98.1 F 98.1 F 98.1 F Pulse Rate 68 63 63 Respiratory Rate 18 Blood Pressure 124/75 105/69 105/69 Result Diagrams: 06/01/18 14:15 Other Results: midline incision well opposed with clean steri strips. No echymosis or separation fundus firm minimal lochia Objective Remarks: GENERAL: Well-nourished, well-developed patient. CARDIOVASCULAR: Regular rate and rhythm without murmurs, gallops, or rubs. RESPIRATORY: Breath sounds equal bilaterally. No accessory muscle use. ABDOMEN/GI: Abdomen soft, non-tender, bowel sounds present. Incision: Clean, dry and intact. Fundus: Firm, non-tender at umbilicus. GENITOURINARY: Light to moderate bleeding. EXTREMITIES: No cyanosis or edema, non-tender, without signs of DVT. Medications and IVs: Active Medications Acetaminophen (Tylenol) 650 mg PO Q6H PRN PRN Reason: PAIN SCALE 1 TO 2 Buprenorphine HCl (Sublingual) 8 mg SL BID@1100,2300 [facility] Last Admin: 06/01/18 22:42 Dose: 8 mg Gabapentin (Neurontin) 300 mg PO Q8H [facility] Last Admin: 06/02/18 02:19 Dose: 300 mg Lactated Ringer's (Lr 1000 Ml Inj) 1,000 mls @ 150 mls/hr IV.CONT .Q6H40M [facility] Ketorolac Tromethamine (Toradol Inj) 30 mg IM Q6H PRN PRN Reason: SEE LABEL COMMENTS Stop: 06/04/18 03:53 Miscellaneous Information ([facility] [place] Nursing Information) 0 each OTHER Q15M [facility] Naloxone HCl (Narcan Inj) 0.4 mg IV.PUSH PRN PRN PRN Reason: Resp rate < 10 Ondansetron HCl (Zofran Inj) 4 mg IV.PUSH Q6H PRN PRN Reason: NAUSEA OR VOMITING Senna/Docusate Sodium (Asia-Colace) 2 tab PO Q12H PRN PRN Reason: CONSTIPATION Last Admin: 05/31/18 16:15 Dose: 2 tab Simethicone (Mylicon Chew) 80 mg PO QID PRN PRN Reason: FLATULENCE Last Admin: 05/31/18 16:14 Dose: 80 mg Sodium Chloride (Ns Flush) 2 ml IV.FLUSH BID [facility] Last Admin: 06/01/18 21:45 Dose: 2 ml Sodium Chloride (Ns Flush) 2 ml IV.FLUSH PRN PRN PRN Reason: FLUSH AFTER USING IV ACCESS Last Admin: 05/31/18 16:19 Dose: 2 ml Sodium Chloride (Ns Flush) 2 ml IV.FLUSH BID [facility] Sodium Chloride (Ns Flush) 2 ml IV.FLUSH PRN PRN PRN Reason: FLUSH AFTER USING IV ACCESS Zolpidem Tartrate (Ambien) 5 mg PO HS PRN PRN Reason: INSOMNIA Assessment and Plan - Diagnosis (1) Precipitate labor, delivered, current hospitalization Code(s): O62.3 - Precipitate labor Status: Acute Plan: stable POD#1, advance care , son stable in NICU (2) Drug abuse during Code(s): O99.320 - Drug use complicating , unspecified trimester; F19.10 - Other psychoactive substance abuse, uncomplicated Status: Acute (3) Breech delivery Code(s): O32.1XX0 - Maternal care for breech presentation, not applicable or unspecified Status: Acute (4) History of low vertical section Code(s): Z98.891 - History of uterine scar from previous surgery Status: Acute - Plan 32y/o female who is POD#1 s/p CXN. -Continue routine care. -Percocet and Motrin PRN pain. -Encouraged OOB. Advised pelvic rest for 6 wks. Will need a f/u appt. in 1 wk for incision check. -D/c in 1-[address] Wall POD 2 Not seen but chart reviewed anticipate discharge home on POD 3 with subutex and psych mediations To return in one week or less case management to help with follow up in [place] POD 3 work on stay close assess pain control off of percocet (buprenorphine and motrin only) case management to see regarding transportation needs [employer] assessment [facility]
[2018-06-02] MEDS ORDERED: Iron Sucrose Inj 200 MG in Sodium Chlor 0.9% Inj 100 ML IV.SIG ONE (06:00)
[2018-06-03] MEDS: Gabapentin 300 MG Capsule PO SCH ×2 (02:00→08:37)
[2018-06-03] MEDS: Ibuprofen 600 MG Tablet PO SCH (05:30)
--- NOTE | 2018-06-03 10:38 | P.PNOB ---
Subjective Post op day: 4 Objective Vital Signs/I&O: Vital Signs 06/02/18 20:00 06/03/18 08:00 Temperature 97.9 F 98.1 F Pulse Rate 79 75 Respiratory Rate 18 20 Blood Pressure 116/75 122/74 Result Diagrams: 06/01/18 14:15 Objective Remarks: GENERAL: Well-nourished, well-developed patient. CARDIOVASCULAR: Regular rate and rhythm without murmurs, gallops, or rubs. RESPIRATORY: Breath sounds equal bilaterally. No accessory muscle use. ABDOMEN/GI: Abdomen soft, non-tender, bowel sounds present. Incision: Clean, dry and intact. Fundus: Firm, non-tender at umbilicus. GENITOURINARY: Light to moderate bleeding. EXTREMITIES: No cyanosis or edema, non-tender, without signs of DVT. Medications and IVs: Active Medications Acetaminophen (Tylenol) 650 mg PO Q6H PRN PRN Reason: PAIN SCALE 1 TO 2 Last Admin: 06/03/18 08:37 Dose: 650 mg Buprenorphine HCl (Sublingual) 8 mg SL BID@1100,2300 [facility] Last Admin: 06/02/18 23:30 Dose: 8 mg Gabapentin (Neurontin) 300 mg PO Q8H [facility] Last Admin: 06/03/18 08:37 Dose: 300 mg Lactated Ringer's (Lr 1000 Ml Inj) 1,000 mls @ 150 mls/hr IV.CONT .Q6H40M [facility] Ketorolac Tromethamine (Toradol Inj) 30 mg IM Q6H PRN PRN Reason: SEE LABEL COMMENTS Stop: 06/04/18 03:53 Naloxone HCl (Narcan Inj) 0.4 mg IV.PUSH PRN PRN PRN Reason: Resp rate < 10 Ondansetron HCl (Zofran Inj) 4 mg IV.PUSH Q6H PRN PRN Reason: NAUSEA OR VOMITING Senna/Docusate Sodium (Asia-Colace) 2 tab PO Q12H PRN PRN Reason: CONSTIPATION Last Admin: 05/31/18 16:15 Dose: 2 tab Simethicone (Mylicon Chew) 80 mg PO QID PRN PRN Reason: FLATULENCE Last Admin: 05/31/18 16:14 Dose: 80 mg Sodium Chloride (Ns Flush) 2 ml IV.FLUSH BID [facility] Last Admin: 06/01/18 21:45 Dose: 2 ml Sodium Chloride (Ns Flush) 2 ml IV.FLUSH PRN PRN PRN Reason: FLUSH AFTER USING IV ACCESS Last Admin: 05/31/18 16:19 Dose: 2 ml Sodium Chloride (Ns Flush) 2 ml IV.FLUSH BID [facility] Sodium Chloride (Ns Flush) 2 ml IV.FLUSH PRN PRN PRN Reason: FLUSH AFTER USING IV ACCESS Zolpidem Tartrate (Ambien) 5 mg PO HS PRN PRN Reason: INSOMNIA Last Admin: 06/02/18 23:30 Dose: 5 mg Assessment and Plan - Diagnosis (1) Precipitate labor, delivered, current hospitalization Code(s): O62.3 - Precipitate labor Status: Acute Plan: stable POD#4, advance care , son stable in NICU (2) Drug abuse during Code(s): O99.320 - Drug use complicating , unspecified trimester; F19.10 - Other psychoactive substance abuse, uncomplicated Status: Acute (3) Breech delivery Code(s): O32.1XX0 - Maternal care for breech presentation, not applicable or unspecified Status: Acute (4) History of low vertical section Code(s): Z98.891 - History of uterine scar from previous surgery Status: Acute - Plan 32y/o female who is POD#4 s/p CD. pt of Dr. Hernandez's discharge on stay close managed by Dr. Hernandez for pain control with buprenorphine and motrin case management consulted regarding transportation [employer] assessment ordered per Dr. Hernandez > could be candidate for renting apartment on [facility] Tuesday to see Dr. Hernandez Discharge Planning: today
== END 2018-06-03 11:11 | disposition home or self-care (01) ==
LOC: HOBED 02:25 → H2E 02:37 → H1EA 05:23
PROVIDERS: ADMIT Obstetrics & Gynecology Maternal & Fetal Medicine; ATTEND Obstetrics & Gynecology Maternal & Fetal Medicine